=== PATIENT | male | born 1975 | race African-American/Black ===

== ENCOUNTER 2019-01-23 21:06 | Emergency (ER) | payer MEDICAID, OTHER ==
[~2019-01-23] VITALS: Ht 185.4 cm; Wt 111.1 kg
[~2019-01-23 21:06] MED LIST: ANUSOL-HC CREAM30 GM RECTAL; COLACE100 MG ORAL
--- NOTE | 2019-01-23 21:13 | NUR ---
not in waiting room; will call again
[2019-01-23 21:25] VITALS: BP 117/59
--- NOTE | 2019-01-23 21:28 | NUR ---
ED Nurse Note: ERMD at bedside.
[2019-01-23] MEDS ORDERED: Methocarbamol 750mg tab ORAL ONE (21:30)
--- NOTE | 2019-01-23 21:34 | Emergency Room Report ---
History of Present Illness General Chief Complaint: Pain Source: Patient Present Illness HPI Disclaimer: Please note that this report is being documented using DRAGON technology. This can lead to erroneous entry secondary to incorrect interpretation by the dictating instrument. HPI: 43-year-old otherwise healthy male presents for evaluation of back pain. 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 He noticed a pain in the left side of his mid back 1 week ago. Pain is worse with deep inspiration, bending and twisting motions and relieved by rest. Denies any cough, shortness of breath, sore throat, fevers, chills, nasal congestion, abdominal pain, vomiting or diarrhea. Has not used any medication yet. There is no trauma reported. PMH: Denies PSH: Denies Allergies: None reported Social Hx: Denies drug or alcohol abuse Allergies: Coded Allergies: No Known Allergies (Unverified , 12/29/13) Nursing Documentation-PMH Past Medical History: No Stated History Review of Systems All Other Systems: negative except mentioned in HPI Physical Exam Vital Signs Date Time Temp Pulse Resp B/P (MAP) Pulse Ox O2 Delivery O2 Flow Rate FiO2 01/23/19 21:18 97.9 77 16 117/59 (78) 96 Room Air General: Awake and alert, no acute distress HEENT: NC/AT. EOMI. Resp: Normal work of breathing, no wheezing, no crackles Skin: Intact. No abrasions, laceration or rash over the exposed skin MSK: Normal tone and bulk. Moving all extremities. No obvious deformity. Neuro: Awake and alert. Mentating appropriately Spine: There is no midline tenderness in the cervical, thoracic or lumbosacral spine. There is paraspinal tenderness and tenderness in the mid scapular line in the left mid back. No obvious trigger point. Medical Decision Making Diagnostic Impression: Primary Impression: Back muscle spasm ER Course 43-year-old male presents for evaluation of back pain. He is well-appearing with stable vital signs. Physical exam is most consistent with a spasm. Will treat symptomatically with NSAIDs, muscle relaxer and lidocaine patch. Monitor for improvement and if feeling better he may be discharged home with continued therapy. Do not believe he requires emergent labs or imaging at this time. Reevaluation Time: 22:05 Last Vital Signs Date Time Temp Pulse Resp B/P (MAP) Pulse Ox O2 Delivery O2 Flow Rate FiO2 01/23/19 21:25 97.9 82 16 117/59 96 Room Air Status: improved Reevaluation Impression Patient reports feeling much better. Do believe that this is musculoskeletal in nature. Will trial outpatient therapy and the patient will return if there are any changes in his condition. Discussed need for follow-up and reasons to return to the emergency department. He understands and agrees with the treatment plan will be discharged home. Disposition: HOME, SELF-CARE Condition: Stable Scripts Lidocaine Patch* (Lidoderm Patch*) 1 Each Adh..patch 1 PATCH TOPIC DAILY, #10 PATCH 0 Refills Patch(es) may remain in place for up to 12 hours in any 24-hour period. Prov: Mario Mijares MD 01/23/19 Methocarbamol* (ROBAXIN-750*) 750 Mg Tablet 750 MG PO TID, #21 TAB 0 Refills Prov: Mario Mijares MD 01/23/19 Acetaminophen* (ACETAMINOPHEN 325MG TABLET*) 325 Mg Tablet 650 MG ORAL Q6H PRN for For Pain for 10 Days, #50 TAB Prov: Mario Mijares MD 01/23/19 Ibuprofen* (MOTRIN*) 600 Mg Tablet 600 MG ORAL Q8H PRN for For Pain, #30 TAB 0 Refills Prov: Mario Mijares MD 01/23/19 Mario Mijares MD Jan 23, 2019 21:34
--- NOTE | 2019-01-23 21:40 | NUR ---
ED Nurse Note: Lidoderm patch placed on left lower back, patient educated on removing lidoderm after 12 hours, verbalized understanding.
[2019-01-23] MEDS ORDERED: ROBAXIN-750750 MG PO (22:04)
[2019-01-23] MEDS ORDERED: IBUPROFEN600 MG ORAL (22:04)
[2019-01-23] MEDS ORDERED: LIDODERM700 M1 TOPIC (22:04)
[2019-01-23] MEDS ORDERED: ACETAMINOPHEN325 M1 ORAL (22:04)
--- NOTE | 2019-01-23 22:10 | NUR ---
ER DISCHARGE NOTE: Pt is cleared for DC per ER provider, pt discharge and aftercare instructions provided w/ prescriptions, pt verbalized understanding. pt advised to follow up with pcp or return to ED if change in condition, pt verbalized understanding. Vital signs stable, ambulatory w/ steady gait, left w/ all belongings. ID badn removed. Pt stable upon discharge.
== END 2019-01-23 22:10 | disposition home or self-care (01) ==
LOC: EMR 21:35
DX: M62.830 Muscle spasm of back (principal)
CPT/HCPCS: 99282